=== PATIENT | female | born 1955 | race Caucasian/White ===

== ENCOUNTER 2017-09-26 12:51 | Inpatient (IN) ==
[2017-09-26 14:43] LABS: Basophils % 0.2 % (0.0-0.8); Eosinophils % 0.8 % (0.00-10.9); Hematocrit 32.2 VOL% (35.7-47.0); Hemoglobin 10.1 GM/DL (12.0-16.0); Immature Granulocytes % 0.8 %; Immature Granulocytes Absolute 0.04 #; Lymphocytes % 38.4 % (21.3-54.2); Mean Corpuscular HGB Conc 31.4 GM/DL (32-36); Mean Corpuscular Hemoglobin 31 PG (27-34); Mean Corpuscular Volume 97.3 FL (87-102); Monocytes # 0.2 10*3/uL (0.11-0.8); Monocytes % 3.9 % (1.7-12.7); Neutrophils # 2.9 10*3/uL (1.4-7.4); Neutrophils % 55.9 % (38.7-73.9); Platelet Count 359 T/CUMM (130-400); Red Blood Count 3.31 MC/CUMM (3.8-5.5); Red Cell Distribution Width 16.1 % (9.3-17.3); White Blood Count 5.2 T/CUMM (4-12)
[2017-09-26 15:03] LABS: Alanine Aminotransferase < 6 U/L (13-56); Albumin 2.7 G/DL (3.4-5.0); Alkaline Phosphatase 151 U/L (45-117); Aspartate Amino Transferase 15 U/L (0-37); Bilirubin,Total < 0.39 MG/DL (0.2-1.0); Blood Urea Nitrogen 11 MG/DL (7-18); Calcium 8.5 MG/DL (8.5-10.1); Glucose 81 MG/DL (74-106); Potassium 3.3 MMOL/L (3.5-5.1); Sodium 143 MMOL/L (136-145); Total Protein 7.3 G/DL (6.4-8.3)
[2017-09-26] MEDS ORDERED: predniSONE 20 MG TABLET ONE (17:35)
[2017-09-26] MEDS ORDERED: predniSONE 10 MG TABLET ONE (17:35)
[2017-09-26] MEDS ORDERED: predniSONE 50 MG TABLET PO ONE (17:58)
[2017-09-26] MEDS ORDERED: metroNIDAZOLE INJ 500 MG in PREMIX 1 EACH IV SCH (18:00)
[2017-09-26] MEDS ORDERED: metroNIDAZOLE 500 MG/100 ML PREMIX IV ONE (18:07)
[2017-09-26] MEDS ORDERED: LEVOFLOXACIN INJ 500 MG in PREMIX 1 EACH IV SCH (19:30)
[2017-09-26] MEDS ORDERED: ACETAMINOPHEN 325 MG TABLET PO PRN (19:40)
[2017-09-26] MEDS ORDERED: predniSONE 50 MG TABLET PO STA (19:40)
[2017-09-26] MEDS ORDERED: ONDANSETRON 4 MG/2 ML VIAL IV PRN (19:40)
[2017-09-26] MEDS: SODIUM CHLORIDE 0.9% 1,000 ML IV SCH (20:10)
[2017-09-26 20:23] LABS: INR 2.3; Partial Thromboplastin Time 37.1 SECS (0-40)
[2017-09-26] MEDS ORDERED: MORPHINE 2 MG/1 ML SYRINGE IV PRN (21:47)
[2017-09-26] MEDS: predniSONE 50 MG TABLET PO SCH (23:42)
[2017-09-27] MEDS: metroNIDAZOLE INJ 500 MG in PREMIX 1 EACH IV SCH ×3 (02:55→19:29)
[2017-09-27] MEDS: SODIUM CHLORIDE 0.9% 1,000 ML IV SCH ×3 (04:57→21:28)
[2017-09-27] MEDS: predniSONE 50 MG TABLET PO SCH (05:40)
[2017-09-27] MEDS ORDERED: diphenhydrAMINE CAP 50 MG CAPSULE PO ONE (05:45)
[2017-09-27 06:22] LABS: Basophils % 0.4 % (0.0-0.8); Hemoglobin 9.8 GM/DL (12.0-16.0); Immature Granulocytes % 1.1 %; Immature Granulocytes Absolute 0.03 #; Lymphocytes # 0.9 10*3/uL (1.4-4.0); Lymphocytes % 34.2 % (21.3-54.2); Mean Corpuscular HGB Conc 31.6 GM/DL (32-36); Mean Corpuscular Hemoglobin 30 PG (27-34); Mean Corpuscular Volume 94.8 FL (87-102); Mean Platelet Volume 9.7 FL (9.6-12.0); Monocytes % 1.5 % (1.7-12.7); Neutrophils # 1.7 10*3/uL (1.4-7.4); Neutrophils % 62.8 % (38.7-73.9); Platelet Count 307 T/CUMM (130-400); Red Blood Count 3.27 MC/CUMM (3.8-5.5); Red Cell Distribution Width 16.1 % (9.3-17.3); White Blood Count 2.8 T/CUMM (4-12)
[2017-09-27 06:31] LABS: Partial Thromboplastin Time 36.3 SECS (0-40)
[2017-09-27 06:37] LABS: PT Patient Result 20.5 SECS
[2017-09-27 07:00] LABS: Calcium 8.4 MG/DL (8.5-10.1); Osmolality,Calculated 287.8 MOS/KG (273-304); Potassium 3.9 MMOL/L (3.5-5.1)
[2017-09-27 09:03] LABS: Cancer Antigen 19-9 11.6 U/ML (0-37)
[2017-09-27 09:16] LABS: Carcinoembryonic Antigen 144.2 NG/ML (0.0-5.0)
[2017-09-27] MEDS: CIPROFLOXACIN INJ 400 MG in PREMIX 1 EACH IV SCH ×2 (10:22→21:33)
[2017-09-27] MEDS ORDERED: SODIUM CHLORIDE 0.9% 1,000 ML IV PRN (10:39)
[2017-09-27] MEDS: PANTOPRAZOLE 40 MG TABLET PO SCH (12:47)
[2017-09-27] MEDS ORDERED: PHYTONADIONE 5 MG/5 ML ORAL.SYR PO ONE (14:18)
[2017-09-27] MEDS: HEPARIN DRIP 25,000 UNITS/500 ML PREMIX IV SCH (17:20)
[2017-09-28] MEDS: metroNIDAZOLE INJ 500 MG in PREMIX 1 EACH IV SCH ×3 (01:27→18:05)
[2017-09-28] MEDS: SODIUM CHLORIDE 0.9% 1,000 ML IV SCH ×4 (01:30→20:23)
[2017-09-28 01:46] LABS: Calcium 8.5 MG/DL (8.5-10.1); Magnesium 1.8 MG/DL (1.8-2.4); Osmolality,Calculated 294.7 MOS/KG (273-304); Potassium 3.4 MMOL/L (3.5-5.1)
[2017-09-28 02:14] LABS: INR 1.4; PT Patient Result 14.3 SECS
[2017-09-28 06:36] LABS: Basophils % 0.2 % (0.0-0.8); Eosinophils % 0.3 % (0.00-10.9); Hematocrit 27.3 VOL% (35.7-47.0); Hemoglobin 8.9 GM/DL (12.0-16.0); Immature Granulocytes % 1.1 %; Immature Granulocytes Absolute 0.07 #; Lymphocytes # 2.1 10*3/uL (1.4-4.0); Lymphocytes % 31.3 % (21.3-54.2); Mean Corpuscular HGB Conc 32.6 GM/DL (32-36); Mean Corpuscular Hemoglobin 31 PG (27-34); Mean Corpuscular Volume 94.8 FL (87-102); Mean Platelet Volume 9.3 FL (9.6-12.0); Monocytes # 0.3 10*3/uL (0.11-0.8); Neutrophils # 4.1 10*3/uL (1.4-7.4); Neutrophils % 62.1 % (38.7-73.9); Platelet Count 299 T/CUMM (130-400); Red Blood Count 2.88 MC/CUMM (3.8-5.5); Red Cell Distribution Width 16.3 % (9.3-17.3); White Blood Count 6.7 T/CUMM (4-12)
[2017-09-28] MEDS: CIPROFLOXACIN INJ 400 MG in PREMIX 1 EACH IV SCH ×2 (07:26→20:23)
[2017-09-28] MEDS: PANTOPRAZOLE 40 MG TABLET PO SCH (11:15)
[2017-09-28 12:16] LABS: Hematocrit 30.4 VOL% (35.7-47.0); Hemoglobin 9.4 GM/DL (12.0-16.0)
[2017-09-28] MEDS: HEPARIN DRIP 25,000 UNITS/500 ML PREMIX IV SCH (15:30)
[2017-09-29] MEDS: metroNIDAZOLE INJ 500 MG in PREMIX 1 EACH IV SCH ×2 (02:26→11:03)
[2017-09-29] MEDS: SODIUM CHLORIDE 0.9% 1,000 ML IV SCH ×2 (02:30→11:03)
[2017-09-29 06:35] LABS: Basophils % 0.4 % (0.0-0.8); Eosinophils % 0.8 % (0.00-10.9); Hematocrit 28.9 VOL% (35.7-47.0); Hematocrit 29.2 VOL% (35.7-47.0); Hemoglobin 9.4 GM/DL (12.0-16.0); Immature Granulocytes % 1.6 %; Immature Granulocytes Absolute 0.08 #; Lymphocytes # 1.6 10*3/uL (1.4-4.0); Lymphocytes % 30.8 % (21.3-54.2); Mean Corpuscular HGB Conc 30.8 GM/DL (32-36); Mean Corpuscular Hemoglobin 30 PG (27-34); Mean Corpuscular Volume 96.4 FL (87-102); Mean Platelet Volume 9.3 FL (9.6-12.0); Monocytes # 0.3 10*3/uL (0.11-0.8); Monocytes % 6.8 % (1.7-12.7); Neutrophils % 59.6 % (38.7-73.9); Platelet Count 283 T/CUMM (130-400); Red Blood Count 3.03 MC/CUMM (3.8-5.5); Red Cell Distribution Width 16.5 % (9.3-17.3)
[2017-09-29 06:42] LABS: INR 1.1; PT Patient Result 11.3 SECS
[2017-09-29] MEDS ORDERED: LIDOCAINE 2% TOP JELLY 20 ML VIAL INTRAURETH ONE (06:55)
[2017-09-29 07:05] LABS: Albumin 2.5 G/DL (3.4-5.0); Bilirubin,Total 0.8 MG/DL (0.2-1.0); Total Protein 6.4 G/DL (6.4-8.3)
[2017-09-29 07:08] LABS: Band Neutrophils 3 % (0-10); Giant Platelets Few; Hypochromasia 1+; Lymphocytes 31 % (20-55); Ovalocytes Slight; Platelet Estimate Adequate; Segmented Neutrophils 60 % (50-85); Total Cells Counted 100
[2017-09-29] MEDS: CIPROFLOXACIN INJ 400 MG in PREMIX 1 EACH IV SCH (07:50)
[2017-09-29] MEDS ORDERED: SEVOFLURANE 1 UNIT/15 MINUTE INH ONE (08:37)
[2017-09-29] MEDS ORDERED: PROPOFOL 200 MG/20 ML VIAL IV ONE (08:37)
[2017-09-29] MEDS ORDERED: SUCCINYLCHOLINE 200 MG/10 ML VIAL ONE (08:38)
[2017-09-29] MEDS ORDERED: fentaNYL 100 MCG/2 ML VIAL ONE (08:38)
[2017-09-29] MEDS ORDERED: ONDANSETRON 4 MG/2 ML VIAL ONE (08:38)
[2017-09-29] MEDS ORDERED: MIDAZOLAM 2 MG/2 ML VIAL ONE (08:38)
[2017-09-29] MEDS: PANTOPRAZOLE 40 MG TABLET PO SCH (11:02)
[2017-09-29] MEDS ORDERED: methylPREDNISolone SOD SUC 125 MG/2 ML VIAL ONE (11:02)
[2017-09-29] MEDS ORDERED: diphenhydrAMINE 50 MG/1 ML VIAL ONE (11:02)
[2017-09-29] MEDS ORDERED: methylPREDNISolone SOD SUC 125 MG/2 ML VIAL IV ONE (11:03)
[2017-09-29] MEDS ORDERED: diphenhydrAMINE 50 MG/1 ML VIAL IV ONE (11:04)
[2017-09-29] MEDS ORDERED: amLODIPine 5 MG TABLET PO SCH (14:00)
[2017-09-29] MEDS: HEPARIN DRIP 25,000 UNITS/500 ML PREMIX IV SCH (15:42)
[2017-09-29 16:28] VITALS: BP 137/79
== END 2017-09-29 17:13 | disposition home health service (06) | DRG 357 ==
LOC: N.ED 12:51 → N.EDINP 17:14 → N.3E 19:27
PROVIDERS: ADMIT Surgery; ATTEND Surgery